=== PATIENT | male | born 1990 ===

== ENCOUNTER 2023-06-28 10:53 | Emergency (ER) | payer OTHER, SELFPAY ==
[2023-06-28 11:00] VITALS: BP 143/85; PULSE 60; RESP 15; TEMP 36.9; O2SAT 100; BMI 25.0
--- NOTE | 2023-06-28 11:08 | ED_ITS ---
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 and not limited to fell and hit him in the back of the neck happened 2 hours ago has had posterior neck pain since then rates the pain a 6 out of 10 denies any head injury denies any loss conscious denies any pain elsewhere Associated symptoms: Deny abdominal pain, chills, fever(s), nausea or vomiting Review of Systems Const: Denies: fever(s) or chills Eyes: Denies: blurry vision ENMT: Denies: throat pain or dental pain Card: Denies: chest pain Resp: Denies: dyspnea GI: Denies: abdominal pain, nausea, vomiting or diarrhea Musc: Reports: neck pain; Denies: back pain Skin/Breast: Denies: rash Neuro: Denies: headache(s) Physical Exam Const: COMMON NORMALS: no acute distress, patient oriented x3 and healthy appearing HENMT: COMMON NORMALS: normocephalic and atraumatic HEAD & SCALP: normocephalic and atraumatic Eye: COMMON NORMALS: Equal, round and reactive pupils present and EOMs intact bilaterally PUPIL: Yes Equal, round and reactive pupils present Neck/C-Spine: COMMON NORMALS: full ROM OTHER: Tenderness over posterior C-spine abrasions noted as well Chest: COMMONS NORMALS: normal inspection of the chest Resp: COMMON NORMALS: normal respiratory effort Cardio: COMMON NORMALS: regular rate, regular rhythm and No murmurs present (Cardio) RATE: regular rate RHYTHM: regular rhythm Extremity: COMMON NORMALS: normal to inspection and full ROM Neuro: COMMON NORMALS: patient oriented x3, moves all extremities and no focal motor deficits Psych: COMMON NORMALS: mental status grossly normal, Normal thought process present and cooperative THOUGHT PROCESS: Normal thought process present Skin: COMMON NORMALS: no rashes or lesions noted and no wounds GENERAL SKIN EXAM: no rashes or lesions noted Course Vital Signs: Vital signs: Vital Signs Temperature 98.4 F 06/28/23 11:00 Pulse Rate 60 06/28/23 11:00 Respiratory Rate 15 06/28/23 11:00 Blood Pressure 143/85 06/28/23 11:00 Pulse Oximetry 100 06/28/23 11:00 Oxygen Delivery Me thod Room Air 06/28/23 11:00 MDM - Back Pain/Injury Medical Decision Making Patient presents here with a contusion of his neck from a tree hitting him he has no thoracic or lumbar tenderness CT of his C-spine here showed no acute fractures he is stable for discharge follow-up with PCP and return if worsening. Medical Records I reviewed the patient's medical records. Labs Radiology Impressions Cervical Spine CT 06/28/23 11:08 IMPRESSION: Nondisplaced fractures bilateral posterior arch of C7. C6 spinous process fracture. All radiology interpretation(s) finalized by discharge Discharge Plan Discharge Patient Disposition: Home Clinical Impression: Contusion of neck Qualifiers: Encounter type: initial encounter Qualified Code(s): S10.93XA - Contusion of unspecified part of neck, initial encounter Condition: Stable Prescriptions: No Action No Known Home Medications Discharge Orders: Discharge ED (Routine); Ordered 06/28/23 Ordered By: Jose Ramon Haney Discharge Diet: Advance as tolerated Discharge Activity: Resume usual activity Patient Instructions: Contusion in Adults (ED) Coding Level of Care Code ED Assistant Front Desk Manager for Dionne Ma
--- NOTE | 2023-06-28 11:08 | CTR_ITS ---
PROCEDURE INFORMATION: Exam: CT Cervical Spine Without Contrast Exam date and time: 06/28/2023 11:24 AM Age: 33 years old Clinical indication: Injury or trauma; Other: Hit in back of head and neck by a branch; Blunt trauma TECHNIQUE: Imaging protocol: Computed tomography of the cervical spine without contrast. Radiation optimization: All CT scans at this facility use at least one of these dose optimization techniques: automated exposure control; mA and/or kV adjustment per patient size (includes targeted exams where dose is matched to clinical indication); or iterative reconstruction. REPORTING DATA: Count of CT and Cardiac NM exams in prior 12 months: This patient has received 0 known CTs and 0 known cardiac nuclear medicine studies in the 12 months prior to the current study. COMPARISON: No relevant prior studies available. RADIATION DOSE METRICS: Total DLP (mGy-cm): 172.57 FINDINGS: Bones/joints: Nondisplaced fractures of the bilateral posterior arch of C7 (series 4, image 77). C6 spinous process fracture series 4 image 71. Alignment and vertebral body heights are grossly maintained. Lungs: Lung apices are grossly clear. Soft tissues: No acute findings. CT/CT cervical spin wo con* [id number] IMPRESSION: Nondisplaced fractures bilateral posterior arch of C7. C6 spinous process fracture.
[2023-06-28] MEDS: HYDROcodone-acetaminophen 5-325 mg Tablet 1 TAB PO (11:22)
[2023-06-28 12:28] VITALS: BP 143/85; PULSE 60; RESP 15; TEMP 36.9; O2SAT 100
== END 2023-06-28 12:29 | disposition home or self-care (01) ==
PROVIDERS: Emergency Provider Emergency Medicine
DX: S12.500A Unspecified displaced fracture of sixth cervical vertebra, initial encounter for closed fracture (principal); S12.600A Unspecified displaced fracture of seventh cervical vertebra, initial encounter for closed fracture; S10.91XA Abrasion of unspecified part of neck, initial encounter; W20.8XXA Other cause of strike by thrown, projected or falling object, initial encounter
CPT/HCPCS: 72125; 99284

== ENCOUNTER 2023-07-05 18:21 | Emergency (ER) | payer OTHER, SELFPAY ==
[2023-07-05 18:26] VITALS: BP 128/76; PULSE 60; RESP 18; TEMP 37.2; O2SAT 99; BMI 31.9
--- NOTE | 2023-07-05 19:02 | W.ED.BACK ---
HPI - Back Pain/Injury General: Chief Complaint: Back Pain/Injury Stated Complaint: back pain Time Seen by Provider: 07/05/23 19:01 History of Present Illness: 33-year-old male patient was struck in the back of the neck on the at work. A tree came down and struck patient in the head and neck. Patient came in for and was evaluated and it was noted patient has a large fracture of C7 and a transverse fracture of C6. Patient comes in today due to pain in the neck whenever he lifts heavy objects. Patient is Nauruan-speaking and did not understand when he received a call telling him that he needed to wear a cervical collar and avoid heavy lifting and activity. Patient has yet to receive a call regarding follow-up appointment for orthopedic surgeon. Patient only complains of pain when he has to lift heavy objects. Patient reports otherwise he is doing fine. A telephone refrigeration brazer/solderer was used for the evaluation and treatment of this patient. Review of Systems General: Reports: 10 or more systems reviewed and unremarkable except in HPI and below Musc: Reports: neck pain Physical Exam Const: COMMON NORMALS: alert HENMT: COMMON NORMALS: normocephalic HEAD & SCALP: normocephalic Neck/C-Spine: COMMON NORMALS: full ROM CERVICAL SPINE: Yes cervical ROM normal and Yes Paracervical muscle tenderness Resp: COMMON NORMALS: normal respiratory effort Cardio: COMMON NORMALS: regular rate RATE: regular rate Back/Pelvis: COMMON NORMALS: thoracic and lumbar spine normal to inspection Extremity: COMMON NORMALS: normal to inspection and full ROM Neuro: SENSORIUM/ORIENTATION: Yes alert Skin: COMMON NORMALS: turgor normal GENERAL SKIN EXAM: turgor normal Course Vital Signs: Vital signs: Vital Signs Temperature 99 F 07/05/23 18:26 Pulse Rate 60 07/05/23 18:26 Respiratory Rate 18 07/05/23 18:26 Blood Pressure 128/76 07/05/23 18:26 Pulse Oximetry 99 07/05/23 18:26 Oxygen Delivery Me thod Room Air 07/05/23 18:26 MDM - Back Pain/Injury Medical Decision Making 33-year-old male patient comes in today for injury to the neck. Patient was needing a referral to orthopedics. Patient had returned back to work and states that every time he goes to lift heavy items his neck hurts. There is an refrigeration brazer/solderer I discussed patient's injuries that were noted on his CT exam and did not recommend returning to work at this time. Patient was strongly recommended to avoid any strenuous activity or lifting heavy objects until he was cleared by orthopedic surgeon. Patient otherwise had normal range of motion of the extremities. No signs of severe illness or injury. Differential diagnosis includes not limited to muscle drain, cervical neck fracture, malingering. Patient does have a large fracture of C7 and a transverse fracture of C6. Patient has no neurodeficits at this time. Through the refrigeration brazer/solderer we explained treatment for the patient and his need for follow-up with orthopedist for further evaluation and treatment and consideration of other treatment. At this time patient should not return to work and should avoid strenuous activity. Patient reported understanding and agreed to plan. No radiology studies performed this visit Discharge Plan Discharge Patient Disposition: Home Clinical Impression: C7 cervical fracture Qualifiers: Encounter type: subsequent encounter Fracture type: closed Fracture morphology: unspecified fracture morphology Fracture alignment: nondisplaced Fracture healing: with routine healing Qualified Code(s): S12.601D - Unspecified nondisplaced fracture of seventh cervical vertebra, subsequent encounter for fracture with routine healing Condition: Stable Prescriptions: No Action No Known Home Medications Discharge Orders: Discharge ED (Routine); Ordered 07/05/23 Ordered By: Waldo Salinas Referrals: Shant Herbert DO [Physician] - Patient Instructions: Cervical Fracture (ED) Activity Restrictions/Additional Instructions: Sin levantar objetos pesados. Debe realizar un seguimiento con un cirujano ortop?dico para mack evaluaci?n y tratamiento adicionales. No debe realizar actividades extenuantes hasta que el cirujano ortop?dico lo autorice. Use paracetamol o ibuprofeno para aliviar el dolor. No heavy lifting. You need to follow-up with a orthopedic surgeon for further evaluation and treatment. You should not do strenuous activity until cleared by the orthopedic surgeon. Use acetaminophen or ibuprofen to help with pain. Stand Alone Forms: Work/School Release Coding Level of Care Code ED Real Estate Appraiser Supervisor for Dionne Ma
--- NOTE | 2023-07-05 19:05 | PC.NURSE ---
Trey Salinas in to asses pt with assistance of nuclear plant technical advisor #[phone] by speaker phone. Pt's questions were answered and he verbalized understanding of instructions. Pt dc teaching was also completed with assistance of nuclear plant technical advisor #[phone] via speaker phone, pt verbalized understanding.
[2023-07-05 19:29] VITALS: BP 127/79; PULSE 59; RESP 16; O2SAT 99
--- NOTE | 2023-07-06 09:54 | DCPLANNER ---
Message sent to ortho for a follow up with Dr. Herbert for further evaluation and treatment
--- NOTE | 2023-07-12 07:06 | DCPLANNER ---
Updated note with approval email sent to Ortho
--- NOTE | 2023-07-12 07:32 | DCPLANNER ---
Message sent to ortho with attached email from Kiara with approval by work comp.
== END 2023-07-05 19:30 | disposition home or self-care (01) ==
PROVIDERS: Emergency Provider Nurse Practitioner Family
DX: S12.601A Unspecified nondisplaced fracture of seventh cervical vertebra, initial encounter for closed fracture (principal); W20.8XXA Other cause of strike by thrown, projected or falling object, initial encounter
CPT/HCPCS: 99281